=== PATIENT | male | born 1995 | race Caucasian/White ===

== ENCOUNTER 2018-06-15 21:23 | Emergency (ER) | payer MEDICAID ==
[~2018-06-15] VITALS: Ht 185.4 cm; Wt 81.8 kg
[~2018-06-15 21:23] MED LIST: CYCL-1 PO
[2018-06-15 23:11] VITALS: BP 130/80
[2018-06-15] MEDS ORDERED: ONDA8TAB9 PO (23:14)
[2018-06-15] MEDS ORDERED: ondansetron 4mg rapidly disintigrating tab PO ONE (23:15)
== END 2018-06-15 23:28 | disposition home or self-care (01) ==
LOC: ER 21:24
DX: R55 Syncope and collapse (principal); R41.0 Disorientation, unspecified; R11.0 Nausea; R53.83 Other fatigue; F17.210 Nicotine dependence, cigarettes, uncomplicated; G89.29 Other chronic pain; F12.90 Cannabis use, unspecified, uncomplicated; V89.2XXA Person injured in unspecified motor-vehicle accident, traffic, initial encounter; Y93.89 Activity, other specified; Y92.89 Other specified places as the place of occurrence of the external cause; Y99.8 Other external cause status
CPT/HCPCS: 93005; 99283

== ENCOUNTER 2018-10-05 15:33 | Outpatient (CLI) | payer MEDICAID ==
[~2018-10-05 15:33] MED LIST changes: +ONDA8TAB9 PO
== END 2018-10-05 23:59 | disposition home or self-care (01) ==
LOC: RAD 15:33
PROVIDERS: ATTEND Psychiatry & Neurology Neurology
DX: R40.20 Unspecified coma (principal); R06.4 Hyperventilation; F17.200 Nicotine dependence, unspecified, uncomplicated
CPT/HCPCS: 95816

== ENCOUNTER 2019-05-05 10:27 | Emergency (ER) | payer MEDICAID ==
[~2019-05-05] VITALS: Ht 185.4 cm; Wt 81.2 kg
[2019-05-05 10:36] VITALS: BP 116/48
== END 2019-05-05 12:44 | disposition home or self-care (01) ==
LOC: ER 10:27
DX: S02.2XXA Fracture of nasal bones, initial encounter for closed fracture (principal); G89.29 Other chronic pain; Z91.030 Bee allergy status; W22.8XXA Striking against or struck by other objects, initial encounter; Y93.89 Activity, other specified; Y92.89 Other specified places as the place of occurrence of the external cause; Y99.9 Unspecified external cause status
CPT/HCPCS: 70150; 99283